=== PATIENT | female | born 1950 | race Caucasian/White ===

== ENCOUNTER → 2016-03-28 | Outpatient (CLI) | payer OTHER ==
--- NOTE | 2016-03-28 16:36 | MA ---
Bilateral Digital Screening Mammography Clinical History: 65-year-old female with no family history of breast cancer, presenting for routine annual mammographic screening. The patient is currently taking hormone replacement therapy. Technique: Digital CC and MLO views of each breast were compared with previous studies dated 2010 and July 22, 2009. Additionally, this examination was processed by the [employer] computer-aided detection system. Breast Density: Type A (Adipose-Replaced). CAD Evaluation: Negative. Findings: The breasts are of low parenchymal density. There is no focal dominant mass or area of arc hitectural change, nor are there any suspicious clustered microcalcifications. Impression: Negative mammography. BI-RADS category 1. Recommendation: Routine annual mammographic screening. [facility] will [facility] result letter to the patient. Negative mammography should not preclude additional workup of a clinically suspicious finding. The patients information is entered into a reminder system with a target due date for her next mammog erica.
== END ==
LOC: FIMAGING 15:39
PROVIDERS: ATTEND Family Medicine
DX: Z12.31 Encounter for screening mammogram for malignant neoplasm of breast (principal); Z79.890 Hormone replacement therapy
CPT/HCPCS: G0202

== ENCOUNTER → 2017-03-30 | Outpatient (CLI) | payer OTHER | LOC: FIMAGING 16:07 | PROVIDERS: ATTEND Family Medicine | DX: Z12.31 Encounter for screening mammogram for malignant neoplasm of breast (principal) ==

== ENCOUNTER → 2018-04-24 | Outpatient (CLI) | payer OTHER | LOC: FIMAGING 16:01 | PROVIDERS: ATTEND Family Medicine | DX: Z12.31 Encounter for screening mammogram for malignant neoplasm of breast (principal) ==